=== PATIENT | male | born 1990 | race American Indian/Alaskan Native ===

== ENCOUNTER 2021-04-21 09:31 | Emergency (ER) | payer SELFPAY ==
--- NOTE | 2021-04-21 10:17 | Emergency Department Report ---
HPI - General Chief Complaint: Altered Mental Status Time Seen by Provider: 04/21/21 10:03 - HPI HPI: Charge nurse triage/EMS stretcher The patient is a 22-year-old male present with a chief complaint of altered neuro status. Patient reportedly found unresponsive in his car with the car running. EMS was called and arrived on scene stating that the patient only awaken to sternal rub. EMS states that the police found fentanyl in the patient's car. Patient denies any drug use. Patient states he has been stressed from a new job and was just tired. Patient denies any complaints ED Past Medical Hx - Past Medical History Previous Medical History?: Yes Additional medical history: "concussions" - Surgical History Past Surgical History?: No - Family History Family history: no significant - Social History Smoking Status: Never Smoker Substance Use Type: Marijuana - Medications Home Medications: Home Medications Medication Instructions Recorded Confirmed Last Taken Type Naloxone HCl [Narcan Nasal [place]] 4 mg NS ONCE #1 spray 04/21/21 Unknown Rx ED Review of Systems ROS: Stated complaint: POSSIBLE DRUG USE Other details as noted in HPI Constitutional: no symptoms reported Eyes: denies: eye pain ENT: denies: throat pain Respiratory: no symptoms reported Cardiovascular: denies: chest pain Endocrine: no symptoms reported Gastrointestinal: denies: abdominal pain Genitourinary: denies: dysuria Musculoskeletal: denies: back pain Neurological: denies: headache Physical Exam - Physical Exam Vital Signs: Vital Signs 04/21/21 04/21/21 11:52 12:01 Temperature 98 F Pulse Rate 77 Respiratory 16 16 Rate Blood Pressure 118/78 [Right] O2 Sat by Pulse 98 100 Oximetry Physical Exam: GENERAL: The patient is well-developed well-nourished male lying on stretcher not appearing to be in acute distress. [] HEENT: Normocephalic. Atraumatic. Extraocular motions are intact. Patient has moist mucous membranes. NECK: Supple. Trachea midline CHEST/LUNGS: Clear to auscultation. There is no respiratory distress noted. HEART/CARDIOVASCULAR: Regular. There is no tachycardia. There is no gallop rub or murmur. ABDOMEN: Abdomen is soft, nontender. Patient has normal bowel sounds. There is no abdominal distention. SKIN: There is no rash. There is no edema. There is no diaphoresis. NEURO: The patient is awake, alert, and oriented. The patient is cooperative. The patient has no focal neurologic deficits. The patient has normal speech. Cranial nerves II through XII grossly intact. GCS 15 MUSCULOSKELETAL: There is no evidence of acute injury. ED Medical Decision Making - Lab Data Result diagrams: 04/21/21 10:22 04/21/21 10:22 Laboratory Tests 04/21/21 04/21/21 04/21/21 10:22 10:22 10:22 WBC 4.6 RBC 4.42 Hgb 13.8 Hct 41.5 MCV 94 MCH 31 MCHC 33 RDW 13.5 Plt Count 219 Lymph % (Auto) 24.6 [place] % (Auto) 9.7 H Eos % (Auto) 3.8 Baso % (Auto) 2.9 H Lymph # (Auto) 1.1 L [place] # (Auto) 0.4 Eos # (Auto) 0.2 Baso # (Auto) 0.1 Seg Neutrophils % 59.0 Seg Neutrophils # 2.7 Sodium 141 Potassium 5.1 H Chloride 104.6 Carbon Dioxide 27 Anion Gap 15 BUN 27 H Creatinine 1.1 Estimated GFR > 60 BUN/Creatinine Ratio 25 Glucose 93 Calcium 9.3 Total Bilirubin 0.20 AST 16 ALT 11 Alkaline Phosphatase 47 Total Creatine Kinase 126 CK-MB (CK-2) 3.8 CK-MB (CK-2) Rel Index 3.0 Troponin T < 0.010 Total Protein 7.1 Albumin 4.4 Albumin/Globulin Ratio 1.6 Salicylates Urine Opiates Screen Urine Methadone Screen Acetaminophen Ur Barbiturates Screen Ur Phencyclidine Scrn Ur Amphetamines Screen U Benzodiazepines Scrn Urine Cocaine Screen U Marijuana (THC) Screen Drugs of Abuse Note Plasma/Serum Alcohol < 0.01 04/21/21 04/21/21 04/21/21 10:22 10:22 Unknown WBC RBC Hgb Hct MCV MCH MCHC RDW Plt Count Lymph % (Auto) [place] % (Auto) Eos % (Auto) Baso % (Auto) Lymph # (Auto) [place] # (Auto) Eos # (Auto) Baso # (Auto) Seg Neutrophils % Seg Neutrophils # Sodium Potassium Chloride Carbon Dioxide Anion Gap BUN Creatinine Estimated GFR BUN/Creatinine Ratio Glucose Calcium Total Bilirubin AST ALT Alkaline Phosphatase Total Creatine Kinase CK-MB (CK-2) CK-MB (CK-2) Rel Index Troponin T Total Protein Albumin Albumin/Globulin Ratio Salicylates < 0.3 L Urine Opiates Screen Negative Urine Methadone Screen Negative Acetaminophen 5.0 L Ur Barbiturates Screen Negative Ur Phencyclidine Scrn Negative Ur Amphetamines Screen Negative U Benzodiazepines Scrn Positive Urine Cocaine Screen Negative U Marijuana (THC) Screen Positive Drugs of Abuse Note Disclamer Plasma/Serum Alcohol - Differential Diagnosis Substance abuse Critical care attestation.: If time is entered above; I have spent that time in minutes in the direct care of this critically ill patient, excluding procedure time. ED Disposition Clinical Impression: Substance abuse Disposition: 01 HOME / SELF CARE / HOMELESS Is pt being admited?: No Does the pt Need Aspirin: No Condition: Stable Instructions: Substance Use Disorder and Mental Illness Additional Instructions: Return to the emergency department should you develop worsening symptoms, inability to tolerate food or liquids, high fever or any other concerns Prescriptions: Naloxone HCl [Narcan Nasal [place]] 4 mg NS ONCE #1 spray Referrals: [facility] [Outside] - 3-5 Days Time of Disposition: 12:50
[2021-04-21 11:05] LABS: Creatine Kinase MB 3.8 ng/mL (0.0-4.0)
[2021-04-21 11:06] LABS: Alanine Aminotransferase 11 units/L (7-56); Albumin 4.4 g/dL (3.9-5); BUN/Creatinine Ratio 25; Blood Urea Nitrogen 27 mg/dL (9-20); Calcium 9.3 mg/dL (8.4-10.2); Hemolysis Index 5
[2021-04-21 11:10] LABS: Basophils # (Auto) 0.1 K/mm3 (0.0-0.1); Basophils % (Auto) 2.9 % (0.0-1.8); Eosinophils # (Auto) 0.2 K/mm3 (0.0-0.4); Eosinophils % (Auto) 3.8 % (0.0-4.3); Hematocrit 41.5 % (35.5-45.6); Hemoglobin 13.8 gm/dl (11.8-15.2); Lymphocytes # (Auto) 1.1 K/mm3 (1.2-5.4); Lymphocytes % (Auto) 24.6 % (13.4-35.0); Mean Corpuscular HGB Conc 33 % (32-34); Mean Corpuscular Volume 94 fl (84-94); Monocytes # (Auto) 0.4 K/mm3 (0.0-0.8); Monocytes % (Auto) 9.7 % (0.0-7.3); Platelet Count 219 K/mm3 (140-440); Red Blood Count 4.42 M/mm3 (3.65-5.03); Red Cell Distribution Width 13.5 % (13.2-15.2)
[2021-04-21 11:28] LABS: Amphetamine Screen,Urine Negative; Cocaine Screen,Urine Negative; Methadone Screen,Urine Negative; Opiate Screen,Urine Negative
[2021-04-21 11:42] LABS: Benzodiazepines Screen,Urine Positive; Cannabinoid Screen,Urine Positive
[2021-04-21 12:08] VITALS: BP 118/78
--- NOTE | 2021-04-21 17:48 | Electrocardiograph Report ---
[facility] Test Date: 2021-04-21 Test Time: 12:35:45 Pat Name: EDITH LANG Department: Room: Gender: M Sales Coach: Chelo WOODARD : 1990 Requested By: ELIZABETH PURVIS Order Number: [id number] Reading MD: Mariah Mak Measurements Intervals [place] Rate: 77 P: 77 NV: 144 QRS: 77 QRSD: 116 T: 62 QT: 404 QTc: 457 Interpretive Statements Sinus rhythm Normal ECG No previous ECG available for comparison Electronically Signed On 04-21-2021 17:48:06 EST by Mariah Mak
== END 2021-04-22 06:21 | disposition home or self-care (01) ==
LOC: ED 09:31
DX: F19.10 Other psychoactive substance abuse, uncomplicated (principal); R41.82 Altered mental status, unspecified; F12.90 Cannabis use, unspecified, uncomplicated; Z79.899 Other long term (current) drug therapy
CPT/HCPCS: 36415; 80053; 80307; 80320; 82550; 82553; 84484; 85025; 93005; 99283; G0480